=== PATIENT | male | born 1955 | race Caucasian/White ===

== ENCOUNTER 2017-07-01 09:40 | Emergency (ER) | payer SELFPAY ==
[~2017-07-01] VITALS: Ht 172.7 cm; Wt 77.1 kg
[2017-07-01] MEDS ORDERED: ADULT LOW DOSE81 MG PO (09:52)
[2017-07-01] MEDS ORDERED: TERAZOSIN HCL1 MG PO (09:52)
[2017-07-01] MEDS ORDERED: ATENOLOL25 MG PO (09:53)
== END 2017-07-01 10:08 | disposition home or self-care (01) ==
LOC: ED 09:40
DX: Z00.8 Encounter for other general examination (principal)